=== PATIENT | female | born 1985 | race African-American/Black ===

== ENCOUNTER 2020-09-08 08:39 | Outpatient (CLI) | payer OTHER, SELFPAY ==
--- NOTE | ~2020-09-08 | US_ITS ---
EXAMINATION: US OB /maternal detail DATE: 09/08/2020 10:20 INDICATION: survey TECHNIQUE: Multiple obstetric sonographic images performed. FINDINGS: No prior studies for comparison. There is a single living fetus in vertex presentation. The placenta is posterior without placenta pr evia. Amniotic fluid volume is normal. cardiac activity and movement is noted with a heart rate of 135 beats per minute. The following anatomy was identified as normal: 4 chamber heart 3 vessel cord cord insertion kidneys urinary bladder stomach spine diaphragm ventricles cisterna magna cerebellum The following biometric data were obtained: BPD: 49mm corresponds to gestational age 20 weeks 5 days. Head circumference: 184 mm corresponds to gestational age 20 weeks 5 days. Abdominal circumference: 157 mm corresponds to gestational age 20 weeks 6 days. Femur length: 35 mm corresponds to gestational age 21 weeks 1 days. Head circumference to abdominal circumference ratio: 1.17 (normal range for expected gestational age is 1.06-1.25). Estimated weight: 388 grams +/- 58 grams using Hadlock method. IMPRESSION: 1: Single living intrauterine with an estimated gestational age of 20weeks 6days by current ultrasound measurements, with an EDC of 01/20/2021 in vertex presentation. 2. Normal survey. Reviewed, dictated and finalized at location A. [employer] IMPRESSION: 1: Single living intrauterine with an estimated gestational age of 20 weeks 6days by current ultrasound measurements, with an EDC of 01/20/2021 in ve rtex presentation. 2. Normal survey.
== END 2020-09-08 08:40 | disposition home or self-care (01) ==
PROVIDERS: PCP Internal Medicine; Visit Provider Obstetrics & Gynecology
DX: Z34.92 Encounter for supervision of normal pregnancy, unspecified, second trimester (principal); Z3A.20 20 weeks gestation of pregnancy
CPT/HCPCS: 76805

== ENCOUNTER 2020-11-03 10:52 | Outpatient (CLI) | payer OTHER, SELFPAY ==
--- NOTE | ~2020-11-03 | US_ITS ---
EXAMINATION: US OB follow up DATE: 11/03/2020 11:24 INDICATION: Assess growth during third trimester of TECHNIQUE: Real-time ultrasound of the pelvis was performed. The interpreting radiologist was not pre sent for the study. COMPARISON: 09/08/2020 FINDINGS: There is a single living fetus in vertex presentation. The placenta is posterior fundal. heart rate is 152 beats per minute (bpm). The amniotic fluid index is 11.0 which is normal (5th%-95%: 9.0 -23.4 cm at 30 weeks estimated gestational age) The following biometric data were obtained: BPD: 7.4 cm -> 29 weeks 5 days Head circumference: 26.9 cm -> 29 weeks 2 days Abdominal circumference: 26.8 cm -> 31 weeks 0 days Femur length: 5.7 cm -> 29 weeks 5 days These measurements are concordant. Head circumference to abdominal circumference ratio: 1.00 (normal range 0.97-1.19). Estimated weight: 1547 g (+/-) 232 g. or 3 lbs. 7 oz. (+/-) 8 oz. IMPRESSION: 1. Single living fetus in vertex presentation with heart rate of 152 bpm. 2. Normal amniotic fluid index of 11.0 cm. 3. Estimated weight is 42nd percentile by Hadlock criteria when 01/11/2021 is used as the estima jose daniel date of delivery (BRISSA). Please correlate with clinical information or earlier ultrasounds for mos t accurate BRISSA. Reviewed, dictated and finalized at location A. AR PATHOLOGIST IMPRESSION: 1. Single living fetus in vertex presentation with heart rate of 152 bpm. 2. Normal amniotic fluid index of 11.0 cm. 3. Estimated weight is 42nd percentile by Hadlock criteria when 01/11/2021 is used as the estimated date of delivery (BRISSA). Please correlate with clinica l information or earlier ultrasounds for most accurate BRISSA.
== END 2020-11-03 10:53 | disposition home or self-care (01) ==
LOC: ANHIMG 10:55
PROVIDERS: PCP Internal Medicine; Visit Provider Physician Assistant
DX: Z34.91 Encounter for supervision of normal pregnancy, unspecified, first trimester (principal); Z3A.00 Weeks of gestation of pregnancy not specified
CPT/HCPCS: 76816

== ENCOUNTER 2020-11-18 17:26 | Observation (INO) | payer OTHER, SELFPAY ==
--- NOTE | 2020-11-18 17:24 | PC.NURSE ---
Patient taken to OB at this time. Reports abdominal cramping, 32 week gestation. ED Charge aware, and OB is aware patient being brought to them
--- NOTE | 2020-11-18 17:26 | OBADM ---
This patient, Cristin Stubbs, admitted to the OB room [facility] for observation. Patient/family oriented to hospital policies and general routines including ID bracelet, bed and alarms, visiting hours, pain management, procedures, bathroom and other care routines, personal items, smoking policy, room service/diet, and visiting hours. Patient/Family are encouraged to report perceived risks to care and to ask questions if they do not understand what they are told or what they should do.
[2020-11-18 17:38] VITALS: BP 95/53; PULSE 102
[2020-11-18 17:53] VITALS: BMI 43.1
[2020-11-18 18:00] VITALS: TEMP 36.9
[2020-11-18 18:01] VITALS: BP 106/79; PULSE 116
[2020-11-18 18:06] LABS: Add Urine Microscopic? YES; Appearance Urine Clear (Clear); Bilirubin Urine Negative (Negative); Blood Urine Negative (Negative); Color Urine Yellow (Yellow); Glucose Urine UA Negative (Negative); Ketones Urine Negative (Negative); Leukocyte Esterase Ur Negative LEU/UL (NEGATIVE); Mucus Urine Heavy /lpf; Nitrate Urine Negative (Negative); Protein Urine 1+ mg/dL (Negative); Specific Grav Ur 1.028 (1.001-1.035); Squamous Epithelial Cell Urine Few /hpf (Few)
[2020-11-18 18:31] VITALS: BP 122/67; PULSE 99
--- NOTE | 2020-11-20 06:00 | P.PNOB_ITS ---
OB - Triage/Final Diagnosis Visit Information Comments/Additional reasons for admission: I have assessed the risk for this patient, Cristin Stubbs, and determined that she would benefit from observation care. Evaluation Laboratory results: Laboratory Tests 11/18/20 17:45 Urine Color Yellow Urine Appearance Clear Urine pH 6.0 Ur Specific [place] 1.028 Urine Protein 1+ H Urine Glucose (UA) Negative Urine Ketones Negative Ur Blood (Man) Negative Urine Nitrate Negative Urine Bilirubin Negative Urine Urobilinogen 2.0 H Ur Leukocyte Esterase Negative Urine RBC 3-5 H Ur Squamous Epith Cells Few Urine Mucus Heavy H Final Diagnosis (1) UTI (urinary tract infection) during : Code(s): O23.40 - Unspecified infection of urinary tract in , unspecified trimester Status: Acute
== END 2020-11-18 19:16 | disposition home or self-care (01) ==
PROVIDERS: Admitting Provider Obstetrics & Gynecology; PCP Internal Medicine; Visit Provider Obstetrics & Gynecology
DX: O23.40 Unspecified infection of urinary tract in pregnancy, unspecified trimester (principal); Z3A.00 Weeks of gestation of pregnancy not specified
CPT/HCPCS: 81001; 87086; 87088; G0378; G0379

== ENCOUNTER 2021-01-12 05:09 | Inpatient (IN) | payer OTHER, SELFPAY ==
--- NOTE | 2021-01-11 06:26 | WPDOBADMIT ---
Obstetrics - Admit Note Admission Note: record reviewed. No pertinent additions to the history and/or any subsequent changes in the physical findings that are not consistent with the expected course of the were found. Additions to the history and/or subsequent changes in the physical findings follow. None. 35 y/o F presents for IOL at 40weeks. c/b tobacco use, CHIO/MDD, HSV, GBS, recent bv, She understands her condition procedure and risks cervidil and pitocin induction of labor and agrees to proceed informed consent risk bleeding infection injury to bladder bowel baby dvt pneumonia wound infection uti risk of shoulder dystocia risk of c section hemorrhage and risk of anesthesia
--- NOTE | 2021-01-11 06:31 | WPDHPUPDATE1 ---
History and Physical Update Update Date/Time: 01/12/21 06:31 History and Physical has been reviewed, including an updated exam of the patient. There are NO changes in the patient's condition. Risks, benefits, and alternatives have been discussed and questions answered. Patient agrees to proceed with procedure. 35 y/o F presents for IOL at 40weeks. c/b tobacco use, CHIO/MDD, HSV, GBS, recent bv, She understands her condition procedure and risks cervidil and pitocin induction of labor and agrees to proceed informed consent risk bleeding infection injury to bladder bowel baby dvt pneumonia wound infection uti risk of shoulder dystocia risk of c section hemorrhage and risk of anesthesia
--- NOTE | 2021-01-11 06:32 | PM.IMHP ---
H&P: HPI History of Present Illness Date/Time: 01/11/21 06:32 35 y/o F presents for IOL at 40weeks. c/b tobacco use, CHIO/MDD, HSV, GBS, recent bv, She understands her condition procedure and risks cervidil and pitocin induction of labor and agrees to proceed informed consent risk bleeding infection injury to bladder bowel baby dvt pneumonia wound infection uti risk of shoulder dystocia risk of c section hemorrhage and risk of anesthesia Chief Complaint: elective induction of labor term Review of Systems Review of Systems: All systems reviewed & are unremarkable except as noted in HPI and below Constitutional: Constitutional: Reports no additional constitutional complaints Eyes: Eyes: Reports no additional eye complaints ENT: Reports system reviewed and no additional complaints, except as documented Cardiovascular: Cardiovascular: Reports no additional cardiovascular complaints Respiratory: Respiratory: Reports no additional respiratory complaints Gastrointestinal: Gastrointestinal: Reports no additional gastrointestinal complaints Genitourinary: Genitourinary: Reports no additional female genitourinary complaints Musculoskeletal: Musculoskeletal: Reports no additional musculoskeletal complaints Integumentary/Breasts: Skin/Breast: Reports system reviewed and no additional complaints, except as docu Neurologic: Reports system reviewed and no additional complaints, except as documented Psychiatric: Psychiatric: Reports no additional psychiatric complaints Endocrine: Endocrine: Reports no additional endocrine complaints Hematologic/Lymphatic: Hematologic/Lymphatic: Reports no additional hematologic/lymphatic complaints Allergic/Immunologic: Allergic/Immunologic: Reports no additional allergic/immunologic complaints [facility] Past Medical History Medical History (Updated 01/11/21 @ 06:46 by Cuate Saavedra MD) BV (bacterial vaginosis) CHIO (generalized anxiety disorder) GBS (group B Streptococcus carrier), +RV culture, currently HSV (herpes simplex virus) anogenital infection MDD (major depressive disorder) MTHFR mutation (methylenetetrahydrofolate reductase) Obesity Term Trichomonal vaginitis during UTI (urinary tract infection) during Family History Family History (Updated 12/22/20 @ 13:11 by Elvis Rosenthal RN) Sibling Lupus Social History Social History (Updated 01/11/21 @ 06:41 by Cuate Saavedra MD) Smoking status: Former smoker Tobacco type: cigarettes Alcohol intake: former Substance use: former Substance use type: marijuana Living arrangements: with family Occupation/Education: occupation Gender identity (if verbalized by the patient): Female Sexual Orientation (if Verbalized by the Patient): Bisexual Spiritual care concerns: No Agree to blood products: Yes Meds Home Medications and Allergies Home Medications Medication Instructions Recorded Confirmed Type acyclovir 800 mg PO DAILY 12/22/20 12/22/20 History prenat.vits,ambar,wne-jfrp-uywvy 1 tablet PO DAILY 12/22/20 12/22/20 History [ #2] Allergies Allergy/AdvReac Type Severity Reaction Status Date / Time No Known Allergies Allergy Unverified 07/26/18 12:34 Exam Const: General: cooperative, healthy appearing, comfortable, no acute distress, well developed, alert, awake and Physically active Nutritional Appearance: obese Limitations: no limitations HENMT: Head: normal to inspection Eyes: General: appearance normal, both eyes and all related structures Neck: Neck: normal visual inspection and full ROM Chest: Chest palpation & inspection: normal inspection of the chest Breast/axilla inspection: normal inspection of the breasts Resp: Effort & Inspection: normal respiratory effort Auscultation: clear to auscultation bilaterally Cardio: Rate: regular rate Rhythm: regular rhythm Heart sounds: S1 normal hear
[2021-01-12] VITALS (182 sets, daily range): BP systolic 64–134; BP diastolic 24–94; PULSE 76–118; TEMP 36.1–36.8; O2SAT 93–100; BMI 44.3
[2021-01-12 05:47] LABS: Basophils Absolute Auto 0.1 K/mm3 (0.0-0.1); Basophils Percent Auto 0.6 % (0.2-1.2); Eosinophils Absolute Auto 0.4 K/mm3 (0-0.3); Eosinophils Percent Auto 5.5 % (0-4.4); Hematocrit 37.7 % (37.0-47.0); Hemoglobin 12.3 g/dL (12.0-15.0); Immature Granulocyte Absolute 0.05 K/mm3 (0.00-0.031); Immature Granulocyte Percent A 0.6 % (0-0.5); Lymphocytes Absolute Auto 1.73 K/mm3 (0.9-3.2); Lymphocytes Percent Auto 22.5 % (18.3-44.2); Mean Corpuscular HGB Conc 32.6 g/dl (32-36); Mean Corpuscular Hemoglobin 29.6 pg (26-34); Mean Corpuscular Volume 90.6 fl (80-100); Mean Platelet Volume 9.7 fl (7.4-10.4); Monocytes Absolute Auto 0.6 K/mm3 (0.1-0.6); Monocytes Percent Auto 7.4 % (2.6-8.5); Neutrophils Absolute Auto 4.9 K/mm3 (1.3-6.7); Neutrophils Percent Auto 63.4 % (45.5-73.1); Platelet Count Result 211 k/mm3 (150-375); Red Blood Count 4.16 M/mm3 (4.2-5.4); Red Cell Distribution Width 14.8 % (11.5-14.5); White Blood Count 7.7 K/mm3 (4.5-10.0)
--- NOTE | 2021-01-12 05:51 | LDADM ---
This patient, Cristin Stubbs, was admitted to Labor/Delivery/Recovery 104 on 01/12/21 at 05:09. Plans for labor, pain management and were discussed with patient. Patient/family oriented to hospital policies and general routines including ID bracelet, bed and alarms, visiting hours, pain management, procedures, bathroom and other care routines, personal items, smoking policy, room service/diet and guest tray routines, infant security routines, and visiting hours. Patient/Family are encouraged to report perceived risks to care and to ask questions if they do not understand what they are told or what they should do. See OBIX for further documentation.
[2021-01-12] MEDS: AMPICILLIN 2 GM/NS 100 ML 2 GM/100 ML BAG IVPB (06:29)
[2021-01-12] MEDS: LACTATED RINGERS 1,000 ML 125 ML IV CONT ×3 (06:29→18:26)
[2021-01-12] MEDS: DINOPROSTONE 10 MG VAG INSERT VAGINAL (06:36)
--- NOTE | 2021-01-12 07:04 | WPDANESEPP ---
Anes - Eval Pre Procedure Procedure: labor epidural Date/Time: 01/12/21 07:04 Surgeon: eulalia Preop Diagnosis: pain during labor Pre Op Diagnosis: IOL Patient Data Age: 35 Gender: F Height: 5 ft 2 in Weight: 110 kg Last Vital Signs Temp 36.8 C 01/12/21 06:45 Pulse 91 01/12/21 07:00 BP 98/61 L 01/12/21 07:00 Pulse Ox 99 01/12/21 06:59 Allergies Allergy/AdvReac Type Severity Reaction Status Date / Time No Known Allergies Allergy Verified 01/12/21 06:25 Home Medications Medication Instructions Recorded Confirmed Type acyclovir 800 mg PO DAILY 12/22/20 01/12/21 History prenat.vits,ambar,ehp-rtna-[id number] 1 tablet PO DAILY 12/22/20 01/12/21 History [ #2] Laboratory Tests 01/12/21 01/12/21 01/12/21 05:40 05:40 05:40 WBC 7.7 K/mm3 K/mm3 (4.5-10.0) RBC 4.16 M/mm3 L M/mm3 (4.2-5.4) Hgb 12.3 g/dL g/dL (12.0-15.0) Hct 37.7 % % (37.0-47.0) MCV 90.6 fl fl (80-100) MCH 29.6 pg pg (26-34) MCHC 32.6 g/dl g/dl (32-36) RDW 14.8 % H % (11.5-14.5) Plt Count 211 k/mm3 k/mm3 (150-375) MPV 9.7 fl fl (7.4-10.4) Immature Gran % (Auto) 0.6 % H % (0-0.5) Neut % (Auto) 63.4 % % (45.5-73.1) Lymph % (Auto) 22.5 % % (18.3-44.2) [place] % (Auto) 7.4 % % (2.6-8.5) Eos % (Auto) 5.5 % H % (0-4.4) Baso % (Auto) 0.6 % % (0.2-1.2) Lymph # (Auto) 1.73 K/mm3 K/mm3 (0.9-3.2) [place] # (Auto) 0.6 K/mm3 K/mm3 (0.1-0.6) Eos # (Auto) 0.4 K/mm3 H K/mm3 (0-0.3) Baso # (Auto) 0.1 K/mm3 K/mm3 (0.0-0.1) Abs Immat Gran (auto) 0.05 K/mm3 H K/mm3 (0.00-0.031) Absolute Neuts (auto) 4.9 K/mm3 K/mm3 (1.3-6.7) Absolute Nucleated RBC 0.0 K/mm3 K/mm3 (0.0-0.012) Nucleated RBC % 0.0 % % (0.0-0.2) Urine Opiates Screen Urine Methadone Screen Ur Barbiturates Screen Ur Phencyclidine Scrn Ur Amphetamine Screen U Benzodiazepines Scrn Urine Cocaine Screen U Cannabinoids Screen RPR Pending Blood Type A Positive Antibody Screen Negative 01/12/21 06:52 WBC RBC Hgb Hct MCV MCH MCHC RDW Plt Count MPV Immature Gran % (Auto) Neut % (Auto) Lymph % (Auto) [place] % (Auto) Eos % (Auto) Baso % (Auto) Lymph # (Auto) [place] # (Auto) Eos # (Auto) Baso # (Auto) Abs Immat Gran (auto) Absolute Neuts (auto) Absolute Nucleated RBC Nucleated RBC % Urine Opiates Screen Pending Urine Methadone Screen Pending Ur Barbiturates Screen Pending Ur Phencyclidine Scrn Pending Ur Amphetamine Screen Pending U Benzodiazepines Scrn Pending Urine Cocaine Screen Pending U Cannabinoids Screen Pending RPR Blood Type Antibody Screen Patient hx anesthesia problems: none Family hx anesthesia problems: none [facility] Past Medical History Medical History BV (bacterial vaginosis) Elective 2003 and 2012 CHIO (generalized anxiety disorder) GBS (group B Streptococcus carrier), +RV culture, currently HSV (herpes simplex virus) anogenital infection MDD (major depressive disorder) MTHFR mutation (methylenetetrahydrofolate reductase) Obesity Spontaneous 2017 Term Trichomonal vaginitis during UTI (urinary tract infection) during Vaginal delivery 2006 male(MAIKEL) 7lb-8oz [facility] 15hr labor Vaginal delivery 2014 male(CARITO) 8lb-3oz [facility] 12hr labor Family History Family History Sibling
[2021-01-12 07:18] LABS: Rapid Plasma Reagin Non-Reactive (NonReactive)
[2021-01-12 07:38] LABS: Amphetamine Screen Urine Negative (Negative); Barbiturate Screen Urine Negative (Negative); Benzodiazepines Screen Urine Negative (Negative); Cannabinoid Screen Urine Negative (Negative); Cocaine Screen Urine Negative (Negative); Methadone Screen Urine Negative (Negative); Opiate Screen Urine Negative (Negative); Phencyclidine Screen Urine Negative (Negative)
[2021-01-12] MEDS: AMPICILLIN 1 GM/NS 50 ML 1 GM/50 ML BAG IVPB ×3 (10:09→18:27)
[2021-01-12] MEDS: OXYTOCIN 30 UNITS/NS 500 ML 30 UNITS/500 ML BAG IV CONT (13:45)
--- NOTE | 2021-01-12 19:20 | PM.OBPNLAB ---
Pain Control Date/time seen: 01/12/21 19:20 Pain control: tolerating well Pelvic Exam Dilation (cm): 3 Effacement (%): 50 station: -4 Amniotic membrane status: Intact Comments: FAILED ATTEMPTS AT AMNIOTOMY Contractions Monitor mode: External Contraction frequency: 3 Contraction duration: 45 Contraction pattern: Regular Contraction phase: Contraction Contraction intensity: Mild Status status: Category l Assessment and Plan Pitocin rate (mU/min): 12 Assessment: induction ongoing Plan: continuous present management
[2021-01-12] MEDS: fentaNYL CITRATE INJ (*CRX) 100 MCG/2 ML VIAL 50 MCG IV PUSH (19:49)
--- NOTE | 2021-01-12 21:05 | PM.OBPNLAB ---
Pain Control Date/time seen: 01/12/21 21:05 Pain control: tolerating well Pelvic Exam Dilation (cm): 3 Effacement (%): 50 station: -4 Amniotic membrane status: Intact Contractions Monitor mode: External Contraction frequency: 3 Contraction pattern: Regular Contraction phase: Contraction Contraction intensity: Mild Status status: Category l Assessment and Plan Pitocin rate (mU/min): 16 Assessment: induction ongoing Comments: failed induction discharge to home rto for re eval
--- NOTE | 2021-01-12 21:06 | PM.OBTRLD ---
OB - Triage/Final Diagnosis Visit Information Comments/Additional reasons for admission: I have assessed the risk for this patient, Cristin Stubbs, and determined that she would benefit from observation care. Evaluation Laboratory results: Laboratory Tests 01/12/21 01/12/21 01/12/21 05:40 05:40 05:40 WBC 7.7 RBC 4.16 L Hgb 12.3 Hct 37.7 MCV 90.6 MCH 29.6 MCHC 32.6 RDW 14.8 H Plt Count 211 MPV 9.7 Immature Gran % (Auto) 0.6 H Neut % (Auto) 63.4 Lymph % (Auto) 22.5 [place] % (Auto) 7.4 Eos % (Auto) 5.5 H Baso % (Auto) 0.6 Lymph # (Auto) 1.73 [place] # (Auto) 0.6 Eos # (Auto) 0.4 H Baso # (Auto) 0.1 Abs Immat Gran (auto) 0.05 H Absolute Neuts (auto) 4.9 Absolute Nucleated RBC 0.0 Nucleated RBC % 0.0 Urine Opiates Screen Urine Methadone Screen Ur Barbiturates Screen Ur Phencyclidine Scrn Ur Amphetamine Screen U Benzodiazepines Scrn Urine Cocaine Screen U Cannabinoids Screen RPR Non-reactive Blood Type A Positive Antibody Screen Negative 01/12/21 06:52 WBC RBC Hgb Hct MCV MCH MCHC RDW Plt Count MPV Immature Gran % (Auto) Neut % (Auto) Lymph % (Auto) [place] % (Auto) Eos % (Auto) Baso % (Auto) Lymph # (Auto) [place] # (Auto) Eos # (Auto) Baso # (Auto) Abs Immat Gran (auto) Absolute Neuts (auto) Absolute Nucleated RBC Nucleated RBC % Urine Opiates Screen Negative Urine Methadone Screen Negative Ur Barbiturates Screen Negative Ur Phencyclidine Scrn Negative Ur Amphetamine Screen Negative U Benzodiazepines Scrn Negative Urine Cocaine Screen Negative U Cannabinoids Screen Negative RPR Blood Type Antibody Screen Vital signs: Vital Signs - 24 hr 01/12/21 06:40 01/12/21 06:44 01/12/21 06:45 Temperature 98.3 F Pulse Rate 95 Blood Pressure 105/55 L Pulse Oximetry 99 01/12/21 06:49 01/12/21 06:54 01/12/21 06:59 Temperature Pulse Rate Blood Pressure Pulse Oximetry 98 98 99 01/12/21 07:00 01/12/21 07:04 01/12/21 07:09 Temperature Pulse Rate 91 Blood Pressure 98/61 L Pulse Oximetry 100 99 01/12/21 07:14 01/12/21 07:19 01/12/21 07:24 Temperature Pulse Rate Blood Pressure Pulse Oximetry 99 99 99 01/12/21 07:29 01/12/21 07:30 01/12/21 07:34 Temperature Pulse Rate 90 Blood Pressure 98/54 L Pulse Oximetry 99 99 01/12/21 07:39 01/12/21 07:44 01/12/21 07:49 Temperature Pulse Rate Blood Pressure Pulse Oximetry 100 99 100 01/12/21 07:54 01/12/21 07:59 01/12/21 08:00 Temperature Pulse Rate 91 Blood Pressure 94/60 L Pulse Oximetry 100 100 01/12/21 08:04 01/12/21 08:09 01/12/21 08:14 Temperature Pulse Rate Blood Pressure Pulse Oximetry 100 98 99 01/12/21 08:19 01/12/21 08:24 01/12/21 08:29 Temperature Pulse Rate Blood Pressure Pulse Oximetry 100 98 99 01/12/21 08:30 01/12/21 08:34 01/12/21 08:39 Temperature Pulse Rate 96 Blood Pressure 112/68 Pulse Oximetry 98 100 01/12/21 10:14 01/12/21 10:19 01/12/21 10:24 Temperature Pulse Rate Blood Pressure Pulse Oximetry 100 99 100 01/12/21 10:29 01/12/21 10:34 01/12/21 10:39 Temperature Pulse Rate Blood Pressure Pulse Oximetry 100 99 100 01/12/21 10:44 01/12/21 10:45 01/12/21 10:46 Temperature 97 F L Pulse Rate 113 H 111 H Blood Pressure 66/40 L 64/24 L Pulse Oximetry 100 01/12/21 10:49 01/12/21 10:50 01/12/21 10:53 Temperature Pulse Rate 111 H 97 Blood Pressure 65/50 L 83/44 L Pulse Oximetry 100 01/12/21 10:54 01/12/21 10:59 01/12/21 11:00 Temperature Pulse Rate 101 H Blood Pressure 81/43 L Pulse Oximetry 100 100 01/12/21 11:01 01/12/21 11:04 01/12/21 11:09 Temperature Pulse Rate 99 Blood Pressure 84/40 L Pulse Oximetry 100 100 01/12/21 11:14 01/12/21 11:15 01/12/21 11:19 [place]
== END 2021-01-12 22:13 | disposition home or self-care (01) | DRG 566 ==
PROVIDERS: Admitting Provider Obstetrics & Gynecology; PCP Internal Medicine; Visit Provider Obstetrics & Gynecology
DX: O61.8 Other failed induction of labor (principal); O48.0 Post-term pregnancy; O99.343 Other mental disorders complicating pregnancy, third trimester; F32.9 Major depressive disorder, single episode, unspecified; F41.1 Generalized anxiety disorder; O98.313 Other infections with a predominantly sexual mode of transmission complicating pregnancy, third trimester; A60.9 Anogenital herpesviral infection, unspecified; O99.820 Streptococcus B carrier state complicating pregnancy; O99.283 Endocrine, nutritional and metabolic diseases complicating pregnancy, third trimester; E72.12 Methylenetetrahydrofolate reductase deficiency; Z3A.40 40 weeks gestation of pregnancy; Z87.891 Personal history of nicotine dependence; Z86.19 Personal history of other infectious and parasitic diseases
CPT/HCPCS: 36415; 80307; 84112; 85025; 86592; 86850; 86900; 86901; A9270; J0290; J2590; J3010; J7120

== ENCOUNTER 2021-01-15 10:55 | Outpatient (CLI) | payer OTHER, SELFPAY ==
--- NOTE | ~2021-01-15 | US_ITS ---
EXAMINATION: US OB follow up DATE: 01/15/2021 11:33 INDICATION: Encounter for supervision of other normal which is past dates TECHNIQUE: Real-time ultrasound of the pelvis was performed. The interpreting radiologist was not pre sent for the study. COMPARISON: 11/03/2020 FINDINGS: There is a single living fetus in vertex presentation. The placenta is fundal. heart rate is 1 44 beats per minute (bpm). The amniotic fluid index is 13.7 cm, which is normal (5th%-95%: 7.1-21.4 cm at 40 weeks estimated gestational age). The following biometric data were obtained: BPD: 9.2 cm -> 37 weeks 3 days Head circumference: 33.1 cm -> 37 weeks 5 days Abdominal circumference: 34.5 cm -> 38 weeks 3 days Femur length: 7.6 cm -> 38 weeks 6 days These measurements are concordant. Head circumference to abdominal circumference ratio: 0.96 (normal range 0.89-1.06). Estimated weight: 3448 g (+/-) 517 g. or 7 lbs. 10 oz. (+/-) 1 lb. 2 oz. IMPRESSION: 1. Single living fetus in vertex presentation with heart rate of 144 bpm. 2. Normal amniotic fluid index of 13.7 cm. 3. Estimated weight is 28th percentile by Hadlock criteria when 01/11/2021 is used as the estima jose daniel date of delivery (BRISSA). Please correlate with clinical information or earlier ultrasounds for mos t accurate BRISSA. Reviewed, dictated and finalized at location A. IMPRESSION: 1. Single living fetus in vertex presentation with heart rate of 144 bpm. 2. Normal amniotic fluid index of 13.7 cm. 3. Estimated weight is 28th percentile by Hadlock criteria when 01/11/2021 is used as the estimated date of delivery (BRISSA). Please correlate with clinica l information or earlier ultrasounds for most accurate BRISSA.
== END 2021-01-15 10:56 | disposition home or self-care (01) ==
PROVIDERS: PCP Internal Medicine; Visit Provider Obstetrics & Gynecology
DX: Z34.93 Encounter for supervision of normal pregnancy, unspecified, third trimester (principal); Z3A.40 40 weeks gestation of pregnancy
CPT/HCPCS: 76816

== ENCOUNTER 2021-01-16 09:53 | Inpatient (IN) | payer OTHER, SELFPAY ==
[2021-01-16] VITALS (72 sets, daily range): BP systolic 70–145; BP diastolic 35–110; PULSE 64–167; RESP 20; TEMP 36.2–36.7; O2SAT 91–100; BMI 44.5
--- NOTE | 2021-01-16 09:53 | LDADM ---
This patient, Cristin Stubbs, was admitted to Labor/Delivery/Recovery 104 on 01/16/21 at 09:53. Plans for labor, pain management and were discussed with patient. Patient/family oriented to hospital policies and general routines including ID bracelet, bed and alarms, visiting hours, pain management, procedures, bathroom and other care routines, personal items, smoking policy, room service/diet and guest tray routines, infant security routines, and visiting hours. Patient/Family are encouraged to report perceived risks to care and to ask questions if they do not understand what they are told or what they should do. See OBIX for further documentation.
[2021-01-16] MEDS: LACTATED RINGERS 1,000 ML 125 ML IV CONT ×2 (10:33→12:04)
[2021-01-16] MEDS: AMPICILLIN 2 GM/NS 100 ML 2 GM/100 ML BAG IVPB (10:33)
[2021-01-16 10:41] LABS: Basophils Percent Auto 0.4 % (0.2-1.2); Eosinophils Absolute Auto 0.4 K/mm3 (0-0.3); Eosinophils Percent Auto 4.3 % (0-4.4); Hematocrit 39.1 % (37.0-47.0); Hemoglobin 12.7 g/dL (12.0-15.0); Immature Granulocyte Absolute 0.04 K/mm3 (0.00-0.031); Immature Granulocyte Percent A 0.5 % (0-0.5); Lymphocytes Absolute Auto 1.25 K/mm3 (0.9-3.2); Lymphocytes Percent Auto 14.8 % (18.3-44.2); Mean Corpuscular HGB Conc 32.5 g/dl (32-36); Mean Corpuscular Hemoglobin 29.8 pg (26-34); Mean Corpuscular Volume 91.8 fl (80-100); Mean Platelet Volume 10.3 fl (7.4-10.4); Monocytes Absolute Auto 0.5 K/mm3 (0.1-0.6); Monocytes Percent Auto 6.2 % (2.6-8.5); Neutrophils Absolute Auto 6.3 K/mm3 (1.3-6.7); Neutrophils Percent Auto 73.8 % (45.5-73.1); Platelet Count Result 238 k/mm3 (150-375); Red Blood Count 4.26 M/mm3 (4.2-5.4); Red Cell Distribution Width 14.9 % (11.5-14.5); White Blood Count 8.5 K/mm3 (4.5-10.0)
--- NOTE | 2021-01-16 13:37 | PM.IMHP ---
H&P: HPI History of Present Illness Date/Time: 01/16/21 13:37 35 y/o F presents for Spontaneous onset of labor at 40weeks. c/b tobacco use, CHIO/MDD, HSV, GBS, recent bv, She understands her condition procedure and risks cervidil and pitocin induction of labor and agrees to proceed informed consent risk bleeding infection injury to bladder bowel baby dvt pneumonia wound infection uti risk of shoulder dystocia risk of c section hemorrhage and risk of anesthesia Chief Complaint: spontaneous onset of labor Term Review of Systems Review of Systems: All systems reviewed & are unremarkable except as noted in HPI and below Constitutional: Constitutional: Reports no additional constitutional complaints Eyes: Eyes: Reports no additional eye complaints ENT: Reports system reviewed and no additional complaints, except as documented Cardiovascular: Cardiovascular: Reports no additional cardiovascular complaints Respiratory: Respiratory: Reports no additional respiratory complaints Gastrointestinal: Gastrointestinal: Reports no additional gastrointestinal complaints Genitourinary: Genitourinary: Reports no additional female genitourinary complaints Musculoskeletal: Musculoskeletal: Reports no additional musculoskeletal complaints Integumentary/Breasts: Skin/Breast: Reports system reviewed and no additional complaints, except as docu Neurologic: Reports system reviewed and no additional complaints, except as documented Psychiatric: Psychiatric: Reports no additional psychiatric complaints Endocrine: Endocrine: Reports no additional endocrine complaints Hematologic/Lymphatic: Hematologic/Lymphatic: Reports no additional hematologic/lymphatic complaints Allergic/Immunologic: Allergic/Immunologic: Reports no additional allergic/immunologic complaints [facility] Past Medical History Medical History BV (bacterial vaginosis) Elective 2003 and 2012 CHIO (generalized anxiety disorder) GBS (group B Streptococcus carrier), +RV culture, currently HSV (herpes simplex virus) anogenital infection MDD (major depressive disorder) MTHFR mutation (methylenetetrahydrofolate reductase) Obesity Spontaneous 2017 Term Trichomonal vaginitis during UTI (urinary tract infection) during Vaginal delivery 2006 male(MAIKEL) 7lb-8oz [facility] 15hr labor Vaginal delivery 2013 male(CARITO) 8lb-3oz [facility] 12hr labor Family History Family History Sibling Lupus Other Diabetes mellitus Hypertension Social History Social History Smoking status: Former smoker Tobacco type: cigarettes Alcohol intake: former Substance use: former Substance use type: marijuana Gender identity (if verbalized by the patient): Female Sexual Orientation (if Verbalized by the Patient): Straight or Heterosexual Spiritual care concerns: No Agree to blood products: Yes Meds Home Medications and Allergies Home Medications Medication Instructions Recorded Confirmed Type acyclovir 800 mg PO DAILY 12/22/20 01/16/21 History prenat.vits,ambar,gnb-ieci-foxby 1 tablet PO DAILY 12/22/20 01/16/21 History Allergies Allergy/AdvReac Type Severity Reaction Status Date / Time No Known Allergies Allergy Verified 01/12/21 06:25 Vital Signs Vital Signs - 24 hr 01/16/21 10:03 01/16/21 10:09 01/16/21 10:45 Temperature 97.1 F L Pulse Rate 101 H 113 H Blood Pressure 127/70 120/92 H Pulse Oximetry 01/16/21 11:00 01/16/21 11:15 01/16/21 11:32 Temperature Pulse Rate 104 H 107 H Blood Pressure 132/83 142/84 H Pulse Oximetry 100 01/16/21 11:34 01/16/21 11:37 01/16/21 11:39 Temperature Pulse Rate 124 H 115 H Blood Pressure 145/84 H 132/88 Pulse Oximetry 99 01/16/21 11:
--- NOTE | 2021-01-16 13:44 | WPDOBADMIT ---
Obstetrics - Admit Note Admission Note: record reviewed. No pertinent additions to the history and/or any subsequent changes in the physical findings that are not consistent with the expected course of the were found. Additions to the history and/or subsequent changes in the physical findings follow. None. 35 y/o F presents for spontaneous onset of labor at 40weeks. c/b tobacco use, CHIO/MDD, HSV, GBS, recent bv, She understands her condition procedure and risks cervidil and pitocin induction of labor and agrees to proceed informed consent risk bleeding infection injury to bladder bowel baby dvt pneumonia wound infection uti risk of shoulder dystocia risk of c section hemorrhage and risk of anesthesia
--- NOTE | 2021-01-16 13:45 | WPDHPUPDATE1 ---
History and Physical Update Update Date/Time: 01/16/21 13:45 History and Physical has been reviewed, including an updated exam of the patient. There are NO changes in the patient's condition. Risks, benefits, and alternatives have been discussed and questions answered. Patient agrees to proceed with procedure. 35 y/o F presents for spontaneous onset of labor at 40weeks. c/b tobacco use, CHIO/MDD, HSV, GBS, recent bv, She understands her condition procedure and risks cervidil and pitocin induction of labor and agrees to proceed informed consent risk bleeding infection injury to bladder bowel baby dvt pneumonia wound infection uti risk of shoulder dystocia risk of c section hemorrhage and risk of anesthesia
--- NOTE | 2021-01-16 13:46 | PM.OBPNLAB ---
Pain Control Date/time seen: 01/16/21 13:46 Pain control: tolerating well and epidural Pelvic Exam Dilation (cm): 7 Effacement (%): 75 station: -1 Amniotic membrane status: Intact Contractions Monitor mode: Palpation Contraction pattern: Regular Status status: Category l Assessment and Plan Assessment: active labor Plan: continuous present management
[2021-01-16 13:50] LABS: Rapid Plasma Reagin Non-Reactive (NonReactive)
--- NOTE | 2021-01-16 14:04 | PM.OBPNLAB ---
Pain Control Date/time seen: 01/16/21 14:04 Pelvic Exam Dilation (cm): 8 Effacement (%): 100 station: 0 Amniotic membrane status: Bulging Comments: AROM clear af Contractions Monitor mode: Palpation Contraction frequency: 4 Contraction duration: 45 Contraction pattern: Regular Contraction phase: Contraction Contraction intensity: Strong/Firm Status status: Category l Assessment and Plan Assessment: active labor Plan: continuous present management
[2021-01-16 14:17] LABS: Amphetamine Screen Urine Negative (Negative); Barbiturate Screen Urine Negative (Negative); Benzodiazepines Screen Urine Negative (Negative); Cannabinoid Screen Urine Negative (Negative); Cocaine Screen Urine Negative (Negative); Methadone Screen Urine Negative (Negative); Opiate Screen Urine Negative (Negative); Phencyclidine Screen Urine Negative (Negative)
[2021-01-16] MEDS: AMPICILLIN 1 GM/NS 50 ML 1 GM/50 ML BAG IVPB (14:33)
[2021-01-16] MEDS: OXYTOCIN 30 UNITS/NS 500 ML 30 UNITS/500 ML BAG 999 UNITS IV CONT (16:26)
--- NOTE | 2021-01-16 16:30 | PM.OBPRVD ---
OB - Delivery Note Procedure Delivery date: 01/16/21 Procedure: Normal spontaneous vertex vaginal delivery a viable female infant and placenta Intrapartal events: None Induction method: none Delivery augmentation: rupture of membranes Delivery monitor: external FHT and external uterine Route of delivery: Episiotomy description: None Laceration Description: None Specimen: Yes ( placenta, cord gases, cord blood) Quantitative Blood Loss (ml): 100 Anesthesia type: Epidural Disposition: floor Complications: none Narrative: normal spontaneous vertex vaginal delivery a viable female infant over intact perineum normal delivery of vertex and shoulders infant placed onto the maternal abdomen spontaneous respirations and cry bulb suction cord clamped and cut placenta delivered spontaneously intact three-vessel cord uterus contracted well Pitocin given intravenously no cuts tears or lacerations [place] Baby Date of : 01/16/21 Time of : 16:23 Weeks of gestation at delivery: 41 gender: Female Weight (pounds): 6 Weight (ounces): 9 presentation: vertex position: Left Occiput Anterior Placenta delivery description: Spontaneous and Normal Configuration cord vessel description: 3 Vessels score one minute: 9 score five minutes: 9 Narrative: normal transition normal exam taken to nursery stable condition
--- NOTE | 2021-01-16 16:35 | PM.OBDSVD ---
DS: Admitting Diagnosis Admitting Diagnosis Admitting Diagnosis: term Spontaneous onset of labor MTHFR GBS HSV TV Obesity M DD G 80 DS: Discharge Diagnosis Discharge Diagnosis (1) Term delivered: Code(s): O80 - Encounter for full-term uncomplicated delivery Status: Acute (2) Spontaneous onset of labor: Status: Acute (3) GBS (group B Streptococcus carrier), +RV culture, currently : Code(s): O99.820 - Streptococcus B carrier state complicating Status: Acute (4) MTHFR mutation (methylenetetrahydrofolate reductase): Code(s): E72.12 - Methylenetetrahydrofolate reductase deficiency Status: Acute OB - DS: Summary Hospital Course Time spent discussing smoking cessation with patient: 3 to 10 minutes OB Procedures : Ultrasound OB Procedures Intrapartum: Spontaneous Vag Delivery OB Procedures: : None Peripartum Data Infant Delivery Method: Natural Vaginal Laceration Description: None Episiotomy description: None Procedures: normal spontaneous vertex vaginal delivery a viable female and placenta complications: none 1: Gender: Female Disposition of : home Status at Discharge Functional status at discharge: independent ambulation Overall status at discharge: patient is back to baseline Time Spent with Patient Time attestation: Total time spent providing and/or coordinating discharge services: Time spent: Less than 30 minutes Exam Const: General: cooperative, healthy appearing, comfortable, no acute distress, well developed, alert, awake and Physically active Nutritional Appearance: average body habitus, well nourished and obese Orientation/consciousness: patient oriented x3 Limitations: no limitations HENMT: Head: normal to inspection Eyes: General: appearance normal, both eyes and all related structures Neck: Neck: normal visual inspection Chest: Chest palpation & inspection: normal inspection of the chest Resp: Effort & Inspection: normal respiratory effort Cardio: Rate: regular rate Rhythm: regular rhythm GI: Inspection: normal to inspection GI Palp: Yes Soft to palpation Auscultation: normal bowel sounds : External Female Exam: normal external appearance Bimanual exam- vagina & uterus: non-tender Back/Spine/Pelvis: Back: no CVA tenderness Skin: General skin exam: normal color Neuro: General: patient oriented x3, gait normal, tone normal, moves all extremities, Normal light touch and pain sensation, no meningeal signs and no focal motor deficits Extrem: General: normal to inspection, full ROM and no calf tenderness Psych: Appearance: grossly normal Mental Status: mental status grossly normal Speech and movement: Normal speech and movement present Affect: normal affect Attitude: cooperative Thought process: Normal thought process present Thought content: Yes Normal thought content present Insight: Good insight present (Psych) Judgement: Good judgement present (Psych) DS: Data Data Completed and Pending Labs on day of discharge: Labs from last 24 hours 01/16/21 01/16/21 01/16/21 13:52 10:31 10:31 WBC RBC Hgb Hct MCV MCH MCHC RDW Plt Count MPV Immature Gran % (Auto) Neut % (Auto) Lymph % (Auto) [place] % (Auto) Eos % (Auto) Baso % (Auto) Lymph # (Auto) [place] # (Auto) Eos # (Auto) Baso # (Auto) Abs Immat Gran (auto) Absolute Neuts (auto) Absolute Nucleated RBC Nucleated RBC % Urine Opiates Screen Negative Urine Methadone Screen Negative Ur Barbiturates Screen Negative Ur Phencyclidine Scrn Negative Ur Amphetamine Screen Negative U Benzodiazepines Scrn Negative Urine Cocaine Screen Negative U Cannabinoids Screen Negative RPR Non-reactive Blood Type A Positive Antibody Screen Negative 01/16/21 10:31 WBC 8.5 RBC 4.2
[2021-01-16] MEDS: OXYTOCIN 30 UNITS/NS 500 ML 30 UNITS/500 ML BAG 125 UNITS IV CONT (16:36)
--- NOTE | 2021-01-16 20:07 | PC.NURSE ---
Patient transferred to post room #291 via wheelchair. Support person present. Oriented to unit, room, information board, rooming in, admission packet and security measures. Patient verbalizes understanding.
[2021-01-16] MEDS: LANOLIN (LANSINOH) 7.5 GM CREAM 1 APPLIC TOPICAL (23:08)
[2021-01-16] MEDS: IBUPROFEN 600 MG TABLET PO (23:08)
[2021-01-16] MEDS: ACETAMINOPHEN 325 MG TABLET 650 MG PO (23:08)
[2021-01-17] VITALS: BP 110/48; PULSE 108; RESP 18; TEMP 36.6; O2SAT 99
[2021-01-17 03:50] VITALS: BP 134/88; PULSE 98; RESP 20; TEMP 36.9; O2SAT 100
[2021-01-17] MEDS: ACETAMINOPHEN 325 MG TABLET 650 MG PO ×2 (04:32→14:55)
[2021-01-17] MEDS: IBUPROFEN 600 MG TABLET PO ×2 (04:34→14:55)
[2021-01-17 04:39] LABS: Hemoglobin 10.6 g/dL (12.0-15.0)
[2021-01-17 09:00] VITALS: BP 128/90; PULSE 108; RESP 20; TEMP 36.1
[2021-01-17] MEDS: MULTIVIT/MIN/PREN/FOL AC/IRON TABLET 1 TAB PO (09:39)
[2021-01-17] MEDS: HYDROcodone/acetaminophen (*CRX) 5-325 MG TABLET 1 TAB PO (09:39)
[2021-01-17] MEDS: ACYCLOVIR 400 MG TABLET 800 MG PO (09:40)
--- NOTE | 2021-01-17 11:24 | P.PNOB_ITS ---
OB - PN: Subj Subjective Date/time seen: 01/17/21 11:24 Patient comments: no complaints and pain well controlled baby status: doing well [place] feeding status: exclusively bottle feeding OB - PN: Obj Data Labs CBC & Chem 7: 01/17/21 04:14 Labs: Laboratory Results - last 24 hr 01/16/21 01/16/21 01/16/21 10:31 10:31 13:52 Hgb Hct Urine Opiates Screen Negative Urine Methadone Screen Negative Ur Barbiturates Screen Negative Ur Phencyclidine Scrn Negative Ur Amphetamine Screen Negative U Benzodiazepines Scrn Negative Urine Cocaine Screen Negative U Cannabinoids Screen Negative RPR Non-reactive Blood Type A Positive Antibody Screen Negative 01/17/21 04:14 Hgb 10.6 L Hct 33.0 L Urine Opiates Screen Urine Methadone Screen Ur Barbiturates Screen Ur Phencyclidine Scrn Ur Amphetamine Screen U Benzodiazepines Scrn Urine Cocaine Screen U Cannabinoids Screen RPR Blood Type Antibody Screen OB - PN A/P Assessment and Plan (1) Term delivered: Code(s): O80 - Encounter for full-term uncomplicated delivery Status: Acute Plan day: 1 Plan: routine care and discharge home Time Spent With Patient Time: Total time spent is greater than 50% in coordination of care (as documented) at patient's floor/unit and/or counseling patient: Time with patient: less than 15 minutes Review of Systems Review of Systems: All systems reviewed & are unremarkable except as noted in HPI and below Exam Const: General: cooperative, healthy appearing, comfortable, no acute distress, well developed, alert, awake and Physically active Nutritional Appearance: average body habitus, well nourished and overweight Orientation/consciousness: patient oriented x3 Limitations: no limitations HENMT: Head: normal to inspection Eyes: General: appearance normal, both eyes and all related structures Neck: Neck: normal visual inspection Chest: Chest palpation & inspection: normal inspection of the chest Resp: Effort & Inspection: normal respiratory effort Cardio: Rate: regular rate Rhythm: regular rhythm GI: Inspection: normal to inspection : External Female Exam: normal external appearance Back/Spine/Pelvis: Back: no CVA tenderness Skin: General skin exam: normal color Neuro: General: patient oriented x3, gait normal, tone normal and moves all extremities Extrem: General: normal to inspection and full ROM Psych: Appearance: grossly normal Mental Status: mental status grossly normal Speech and movement: Normal speech and movement present Affect: normal affect Attitude: cooperative Thought process: Normal thought process present Thought content: Yes Normal thought content present Insight: Good insight present (Psych) Judgement: Good judgement present (Psych)
[2021-01-17 13:00] VITALS: BP 141/91; PULSE 80; RESP 18
--- NOTE | 2021-01-17 16:06 | WPDANLDPN2 ---
Anes-Prog Note L&D Date/Time: 01/17/21 16:06 Comfortable throughout: labor and delivery Neuraxial method: epidural Epidural/Spinal procedure site: clean & non-tender Neuro status: Neuro function grossly intact. Cardiovascular status: normal Respiratory status: normal Airway patency: baseline Mental status: baseline Post-Op hydration status: normal Vital Signs: Last Vital Signs Temp 36.1 C L 01/17/21 09:00 Pulse 80 01/17/21 13:00 Resp 18 01/17/21 13:00 BP 141/91 H 01/17/21 13:00 Pulse Ox 100 01/17/21 03:50 Pain score (VAS): 3 I/O: Intake & Output 01/17/21 01/17/21 01/17/21 07:59 15:59 23:59 Intake Total 1000 Output Total 800 Balance 200 Post-procedural complaints: none Patient feedback: Patient satisfied with anesthetic care.
--- NOTE | 2021-01-17 17:15 | PC.NURSE ---
Patient instructed to view the discharge video Mother & Baby Care, The First Two Weeks online. Patient was given the opportunity and encouraged to ask questions. Patient verbalized understanding of information shared and has been given the mother/baby guide for home reference.
== END 2021-01-17 18:01 | disposition home or self-care (01) | DRG 560 ==
LOC: ANHLDR 16:40 → ANHOB2 19:52
PROVIDERS: Admitting Provider Obstetrics & Gynecology; PCP Internal Medicine; Visit Provider Obstetrics & Gynecology
DX: O99.824 Streptococcus B carrier state complicating childbirth (principal); O98.52 Other viral diseases complicating childbirth; B00.9 Herpesviral infection, unspecified; Z3A.40 40 weeks gestation of pregnancy; Z37.0 Single live birth; Z87.891 Personal history of nicotine dependence
CPT/HCPCS: 36415; 80307; 85014; 85018; 85025; 86592; 86850; 86900; 86901; 88307; A9270; J0290; J2590; J7120

== ENCOUNTER 2025-05-04 18:43 | Emergency (ER) | payer OTHER, SELFPAY ==
[2025-05-04 19:03] VITALS: BP 142/106; PULSE 93; RESP 18; TEMP 36.5; O2SAT 98
[2025-05-04 19:11] LABS: EDUAAPPEAR Cloudy; EDUABILI 2+ (Negative); EDUABLOOD Negative (Negative); EDUACOLOR1 Brown; EDUAGLUCOSE Negative (Negative); EDUAKETONE Negative (Negative); EDUALEUKO Negative (Negative); EDUANITRATE Negative (Negative); EDUAPH 5.5; EDUAPROTEIN Trace (Negative); EDUASPGRAVITY 1.030; EDUAUROBILI 4.0
--- NOTE | 2025-05-04 19:24 | ED.FEMALEGU ---
HPI - Female Genitourinary General Chief complaint: Urogenital-Female Stated complaint: nausea/pee is really dark Time Seen by Provider: 05/04/25 19:00 Source: patient and RN notes reviewed Mode of arrival: ambulatory Limitations: no limitations History of Present Illness HPI Narrative: 40-year-old female presents Express Care complaining of urinary symptoms for 2 days. Patient reports having bilateral flank pain, low back pain, fatigue, nausea, dark, cloudy foul-smelling urine. Patient denies any fevers, abdominal pain, body aches, chills, vomiting, diarrhea, dysuria, increased frequency, or hesitancy. Patient has not taken anything [id number] for symptoms. Patient denies any significant past medical history patient said a month ago she had an at 6 weeks of . Patient said she took a recent test at said it was negative and she is no longer . Patient denies any concerns for for as she has not had any intercourse since her last . Patient denies any concerns for STDs, pelvic pain, vaginal discharge, or vaginal bleeding. Related Data Allergies Allergy/AdvReac Type Severity Reaction Status Date / Time No Known Allergies Allergy Verified 05/04/25 18:47 Review of Systems Review of Systems: CONSTITUTIONAL: Denies fever, chills, body aches, or sweats. Positive for fatigue. EYES: Denies visual changes, redness, or discharge. ENT: Denies rhinorrhea, congestion, sore throat, or otalgia. CARDIOVASCULAR: Denies chest pain, palpitations, or edema. RESPIRATORY: Denies cough or dyspnea. GASTROINTESTINAL: Denies abdominal pain, vomiting, or diarrhea. Positive for nausea. GENITOURINARY: Negative for dysuria, increased frequency, hesitancy, vaginal bleeding, vaginal discharge, pelvic pain. Positive for foul-smelling urine, and dark urine. SKIN: Denies rash or itching. MUSCULOSKELETAL: Denies joint pain, or myalgia. Positive for back pain and flank pain. NEUROLOGIC: Denies headache, numbness, or weakness. PSYCHIATRIC: Denies anxiety or depression. All other systems reviewed are negative, except as documented in HPI. [facility] Past Medical History Medical History Spontaneous 2017 Elective 2003 and 2013 Vaginal delivery 2014 male(CARITO) 8lb-3oz [facility] 12hr labor Vaginal delivery 2006 male(MAIKEL) 7lb-8oz [facility] 15hr labor Trichomonal vaginitis during Obesity UTI (urinary tract infection) during GBS (group B Streptococcus carrier), +RV culture, currently HSV (herpes simplex virus) anogenital infection BV (bacterial vaginosis) CHIO (generalized anxiety disorder) MDD (major depressive disorder) Term MTHFR mutation (methylenetetrahydrofolate reductase) Family History Family History Sibling Lupus Other Diabetes mellitus Hypertension Social History Social History Smoking status: Former smoker Tobacco type: cigarettes Alcohol intake: former Substance use: former Substance use type: marijuana Living arrangements: with family Occupation/Education: occupation Gender identity (if verbalized by the patient): Female Sexual Orientation (if Verbalized by the Patient): Straight or Heterosexual Spiritual care concerns: No Agree to blood products: Yes Comments At the time of my signature, I reviewed and agree with the nursing past medical, surgical, social, and family history. There is no relevant family history pertinent to the patient complaint. Exam Narrative: GENERAL: This is a well-nourished, well-developed adult, in no apparent distress. They are non ill-appearing, nontoxic appearing. Patient is obese. HEAD: normocephalic, atraumatic. EYES: Sclera clear/white. Vision is grossly intact. Conjunctiva normal bilaterally. Extraocular movements intact. EARS: External ears normal,Hearing grossly intact. NOSE: External nose normal THROAT: Mucous membranes moist NECK: Normal range of motion CARDIOVASCULAR: Regular rate and rhythm. Normal S1-S2. No clicks, gallops, rubs, murmurs. RESPIRATORY: Respiratory rate normal, respiratory effort nonlabored, no respiratory distress. Lung sounds clear to auscultation throughout. Lung sounds equal bilaterally. No adventitious lung sounds. GASTROINTESTINAL: Abdomen soft, flat, non-tender, nondistended. Bowel sounds are active. No hepato-splenomegaly, or palpable masses. No guarding or rigidity. No rebound tenderness. SKIN: warm, Dry, intact with no suspicious lesions or rash, good texture and turgor. NEURO: awake, alert, and oriented to person, place and time. There were no obvious focal neurologic abnormalities. EXTREMITIES: No joint tenderness, effusion, or edema noted. BACK: No deformity deformity. Tenderness to palpation to the left lower back. No CVA tenderness. Course Course Emergency Course: Portions of this record may have been created with voice recognition software Level of Care: Express Care Visit Vital Signs Vital signs: Vital Signs Temperature 97.7 F 05/04/25 19:03 Pulse Rate 93 05/04/25 19:03 Respiratory Rate 18 05/04/25 19:03 Blood Pressure 142/106 H 05/04/25 19:03 Pulse Oximetry 98 05/04/25 19:03 Oxygen Delivery Room Air 05/04/25 19:03 Temperature 97.7 F 05/04/25 19:03 Pulse Rate 93 05/04/25 19:03 Respiratory Rate 18 05/04/25 19:03 Blood Pressure 142/106 H 05/04/25 19:03 Pulse Oximetry 98 05/04/25 19:03 Oxygen Delivery Room Air 05/04/25 19:03 MDM - Female Genitourinary MDM Narrative Medical decision making narrative: Urine dipstick shows bilirubin. No evidence of infection. Urine culture pending. Urine test negative. Given patient's symptoms will go ahead and treat her for a pyelonephritis. Will also prescribe Zofran as needed for nausea and vomiting. Advised patient to drink more fluids especially water or sports drinks. Will treat with Bactrim. Discussed physical exam findings. Advised supportive measures and signs/symptoms to go to the ER. Pt is appropriate for outpt treatment and f/u. Differential Diagnosis Differential diagnosis: Likely urinary tract infection, cystitis and other (Pyelonephritis) Lab Data Attestation: I reviewed the patient's lab results. Labs: Lab Results 05/04/25 Range/Units 19:08 POC Urine Color Brown POC Urine Clarity Cloudy POC Urine pH 5.5 POC Ur Specif [place] 1.030 POC Urine Protein Trace (Negative) POC Ur Glucose (UA) Negative (Negative) POC Urine Ketones Negative (Negative) POC Urine Blood Negative (Negative) POC Urine Nitrite Negative (Negative) POC Urine Bilirubin 2+ (Negative) POC Urine Urobilinogen 4.0 POC U Leukocyte Esteras Negative (Negative) Discharge Plan Discharge Clinical Impression: Urinary tract infection Qualifiers: Urinary tract infection type: site unspecified Hematuria presence: without hematuria Qualified Code(s): N39.0 - Urinary tract infection, site not specified Patient Disposition: Home Condition: Stable Instructions: Antibiotic Form, Urinary Tract Infection in Women (ED) Additional Instructions: Take the antibiotic as prescribed The urine will be sent of for a culture to identify what type of bacteria is causing your infection. If the culture shows that the antibiotic will not get rid of your infection, you will be notified and a new antibiotic will be called in for you. Increase water intake you will need to follow up with your PCP 3-5 days. Go to the ER for any worsening symptoms, abdominal pain, fevers, nausea, vomiting, or any other concerns Patient Language: [place]ese Prescriptions: New sulfamethoxazole-trimethoprim [Bactrim DS] 800-160 mg tablet 1 tablet PO Q12H 7 Days Qty: 14 0RF ondansetron 4 mg tablet,disintegrating 4 mg PO Q8H PRN (Reason: nausea and vomiting) Qty: 10 0RF Follow-up/Referrals: Chay,ANDREW Gutierrez [Primary Care Provider] - Stand Alone Forms: Work/School Release IP Time of Disposition: 19:22
[2025-05-04 19:31] LABS: BEDSIDEPREGUCG Negative (Negative)
== END 2025-05-04 19:30 | disposition home or self-care (01) ==
PROVIDERS: PCP Physician Assistant Medical
DX: N39.0 Urinary tract infection, site not specified (principal); Z87.891 Personal history of nicotine dependence
CPT/HCPCS: 81003; 81025; 87086; 99213; G0463